=== PATIENT | male | born 1930 | race Caucasian/White ===

== ENCOUNTER 2021-06-15 21:00 | Emergency (ER) | payer MEDICARE ==
[~2021-06-15] VITALS: Ht 165.1 cm; Wt 68.0 kg
[2021-06-15 21:20] LABS: ABSOLUTE BASOPHILS 0.1 thou/uL (0.0-0.2); ABSOLUTE EOSINOPHILS 0.1 thou/uL (0.0-0.7); ABSOLUTE LYMPHOCYTES 2.4 thou/uL (0.8-5.3); ABSOLUTE MONOCYTES 0.7 thou/uL (0.0-1.2); ABSOLUTE NEUTROPHILS 3.4 thou/uL (1.6-8.1); BASOPHILS 0.8 %; EOSINOPHILS 0.9 %; HEMATOCRIT 46.5 % (42.0-52.0); HEMOGLOBIN 15.2 gm/dL (14.0-18.0); LYMPHOCYTES 36.3 %; MCH 30.1 pg (26.0-34.0); MCHC 32.7 g/dL (28.0-37.0); MCV 91.8 fL (80.0-100.0); MONOCYTES 10.5 %; MPV 10.4 fl. (7.2-11.1); NUCLEATED RBCS 0 /100WBC; PLATELET COUNT* 121 thou/uL (150-400); POLYS 51.5 %; RBC 5.06 mil/uL (4.50-6.00); RDW-CV 16.4 % (10.5-14.5); WBC 6.7 thou/uL (4.0-11.0)
[2021-06-15 21:28] LABS: CALCIUM 9.5 mg/dL (8.5-10.1); CREATININE 1.2 mg/dL (0.6-1.3); POTASSIUM 4.3 mmol/L (3.5-5.1)
[2021-06-15 21:43] LABS: MAGNESIUM 2.2 mg/dL (1.8-2.4); TOTAL BILIRUBIN 0.6 mg/dL (<0.1-1.0); TOTAL PROTEIN 7.8 g/dL (6.4-8.2)
[2021-06-15 22:20] LABS: INFLUENZA A ANTIGEN Negative (Negative); INFLUENZA B ANTIGEN Negative (Negative)
[2021-06-16 01:23] VITALS: BP 157/66
--- NOTE | 2021-06-16 11:14 | EKG ---
[place] [address] ELECTROCARDIOGRAM REPORT Name: DIPESH RODRIGUEZ Room: [facility]#: [id number] Admission: 06/15/21 Attend Phys: Discharge: Date of : [birth year] Date of Service: 06/15/212100 Report #: [id number] THIS REPORT FOR: //name// [facility] ED Test Date: 2021-06-15 Test Time: 21:01:42 Pat Name: DIPESH RODRIGUEZ Department: Room: Gender: [employer]: : 1930 Requested By: Dunia Mcgrath Order Number: [id number] MD: Rodolfo Saez Measurements Intervals [place] Rate: 60 P: DC: QRS: -68 QRSD: 166 T: 109 QT: 491 QTc: 491 Interpretive Statements Afib/flutter and ventricular-paced rhythm No further analysis attempted due to paced rhythm No previous ECG available for comparison Electronically Signed On 06-16-2021 11:14:34 [employer] by Rodolfo Saez [email or web address] <ELECTRONICALLY SIGNED> By: Rodolfo Saez MD, [facility] 06/16/21 1114 00 00 Rodolfo Saez MD, FAC /EPI
== END 2021-06-16 01:24 | disposition home or self-care (01) ==
LOC: M.ERS 21:00
PROVIDERS: Emergency Medicine
DX: R06.00 Dyspnea, unspecified (principal); Z20.822 Contact with and (suspected) exposure to COVID-19; I42.9 Cardiomyopathy, unspecified; F02.80 Dementia in other diseases classified elsewhere, unspecified severity, without behavioral disturbance, psychotic disturbance, mood disturbance, and anxiety